=== PATIENT | female | born 1990 | race Caucasian/White ===

== ENCOUNTER 2017-12-07 12:11 | Emergency (ER) | payer OTHER ==
[~2017-12-07] VITALS: Ht 167.6 cm; Wt 81.6 kg
[2017-12-07 14:28] LABS: ABSOLUTE BASOPHIL COUNT 0.1 /CUMM (0.0-0.2); ABSOLUTE EOSINOPHIL COUNT 0 /CUMM (0.0-0.7); ABSOLUTE MONOCYTE COUNT 0.5 /CUMM (0.10-0.60); BASOPHIL % 0.7 % (0.0-2.0); EOSINOPHIL % 0.5 % (0-5); GRANULOCYTE % 65.3 % (42.2-75.2); HEMATOCRIT 42.5 % (37-47); MEAN CORPUSCULAR HGB 31.4 PG (27.0-31.0); MEAN CORPUSCULAR HGB CONC 34.6 G/DL (33.0-37.0); MEAN CORPUSCULAR VOLUME 90.8 FL (81.0-99.0); MEAN PLATELET VOLUME 7.3 FL (7.4-10.4); PLATELET COUNT 438 /CUMM (130-400); RBC DISTRIBUTION WIDTH 12.3 % (11.5-14.5); RED BLOOD CELL CT 4.68 /CUMM (4.20-5.40); WHITE BLOOD CELL COUNT 7.6 /CUMM (4.8-10.8)
--- NOTE | 2017-12-07 14:42 | ED GENERAL ADULT ---
History of Present Illness General Chief Complaint: General Adult Stated Complaint: HANDS ARE TINGLING Source: patient Exam Limitations: no limitations Vital Signs & Intake/Output Vital Signs & Intake/Output Vital Signs Date Time Temp Pulse Resp B/P B/P Pulse O2 O2 Flow FiO2 Mean Ox Delivery Rate 12/07 1447 98.3 94 18 132/88 100 Room Air 12/07 1356 Room Air 12/07 1221 97.9 116 18 164/93 99 Room Air Allergies Coded Allergies: NO KNOWN ALLERGIES (10/25/11) Reconcile Medications Etonogestrel/Ethinyl Estradiol (Nuvaring Vaginal Ring) 0.12 MG -0.015 MG/24 HR VAG.RING 1 EACH VG Q30D BC (Reported) use for 3 weeks, skip for 1 week Triage Note: 27F HX MIGRAINES WAS DRIVING AND DEVELOPED SPOTS AND HAD TO MOBILE ENGINEER. THEN DEVELOPED LEFT SIDED HAND NUMBNESS, RESOLVED AND THEN RIGHT HAND TINGLING ALSO RESOLVED. ALSO FELT TINGLING TO LIP AND TONGUE. REPORTS HEADACHE HAS NOT YET STARTED BUT SHE IS FEELING OFF. ALSO DID NOT EAT BREAKFAST TODAY. INCIDENT OCCURRED AROUND 10:30AM. FOCAL NEUROS INTACT IN TRIAGE AND PERRLA. DENIES SMOKING, +ORAL CONTRACEPTIVES, DENIES FAMILY CARDIAC HX BUT FATHER REPORTS SHE HAS RECENTLY HAD HIGH BP READINGS AT HOME Triage Nurses Notes Reviewed? yes Onset: Abrupt Duration: hour(s): (5), better, changing over time, continues in ED, intermittent Timing: remote history Injury Environment: street Severity: mild, moderate Severity Numbers: 5 No Modifying Factors: none LMP (ages 10-50): unknown : No Patient currently breastfeeds: No HPI: 27-year-old female past mental history of migraine headaches since her evaluation of headache, blurred vision/seen spots, numbness in her lips tongue and bilateral hands. Patient states around 10:30 this morning she was driving her car when she started seeing spots. She then developed numbness and tingling in her left hand and her right hand then her lips and tongue. The numbness and tingling as well as the seeing spots lasted for about a half hour before resolving completely. She then developed a right frontal headache described as pressure. Patient states she has had very similar symptoms on multiple occasions in the past associated with her migraine headaches. States that she usually will get the vision changes numbness and tingling before the headache develops which happened today. The current headache is similar to previous. Described as pressure she rates it as a 5 out of 10 this is not the worst headache of her life there is no nausea or vomiting head trauma fever or neck pain chest pain shortness of breath or any other associated symptoms. She has not had headache like this in a few years. She has had CT scans of her head in the past THAT HAVE been negative. (Dano Hollis) Past History Travel History Traveled to [place] past 21 day No Medical History Any Pertinent Medical History? see below for history Neurological: migraine EENT: NONE Cardiovascular: NONE Respiratory: NONE Gastrointestinal: NONE Hepatic: NONE Renal: NONE Musculoskeletal: NONE Psychiatric: NONE Endocrine: NONE Blood Disorders: NONE Cancer(s): NONE Surgical History Surgical History: non-contributory Psychosocial History What is your primary language Serbian Tobacco Use: Never used Family History Hx Contributory? No (Dano Hollis) Review of Systems Review of Systems Constitutional: Reports: no symptoms. EENTM: Reports: see HPI, visual changes. Respiratory: Reports: no symptoms. Cardiovascular: Reports: no symptoms. GI: Reports: no symptoms. Genitourinary: Reports: no symptoms. Musculoskeletal: Reports: no symptoms. Skin: Reports: no symptoms. Neurological/Psychological: Reports: see HPI, headache, numbness, tingling. Hematologic/Endocrine: Reports: no symptoms. Immunologic/Allergic: Reports: no symptoms. All Other Systems: Reviewed and Negative (Dano Hollis) Physical Exam Physical Exam General Appearance: well developed/nourished, no apparent distress, alert, awake Head: atraumatic, normal appearance Eyes: Bilateral: normal appearance, PERRL, EOMI. Ears, Nose, Throat: normal pharynx, normal ENT inspection, hearing grossly normal Neck: normal inspection, supple, full range of motion Respiratory: normal breath sounds, chest non-tender, no respiratory distress, lungs clear Cardiovascular: regular rate/rhythm, edema, normal peripheral pulses Peripheral Pulses: 2+ radial (R), 2+ radial (L) Gastrointestinal: normal bowel sounds, soft, non-tender, no organomegaly Back: normal inspection, normal range of motion, no vertebral tenderness Extremities: normal inspection, normal range of motion, no edema Neurologic/Psych: no motor/sensory deficits, awake, alert, oriented x 3, normal gait, normal mood/affect, windows systems administrator II-XII nml as tested, NORMAL FINGER TO NOSE, NEGATIVE ROMBERG CEREBELLAR TESTING INTACT Skin: intact, normal color, warm/dry Lymphatic: no anterior cervical tonia Core Measures ACS in differential dx? No CVA/TIA Diagnosis: No Sepsis Present: No Sepsis Focused Exam Completed? No (Ketan DENNEY,Dano) Progress Differential Diagnoses I considered the following diagnoses in my evaluation of the patient: [Migraine headache, cluster headache, tension headache, anxiety attack, acute coronary syndrome, electrolyte ABN, ] Plan of Care: Orders Procedure Date/time Status Add-on Test (ER Only) 12/07 145 Active EKG 12/07 145 Active TROPONIN LEVEL 12/07 1415 Complete URINE 12/07 133 Complete URINALYSIS 12/07 1336 Complete COMPREHENSIVE METABOLIC PANEL 12/07 1336 Complete CBC WITHOUT DIFFERENTIAL 12/07 1336 Complete Laboratory Tests 12/07/17 1439: Urinalysis LIGHT H, Urine Color STRAW, Urine Clarity HAZY H, Urine pH 6.0, Ur Specific [place] <= 1.005, Urine Protein NEG, Urine Ketones NEG, Urine Nitrite NEG, Urine Bilirubin NEG, Urine Urobilinogen 0.2, Ur Leukocyte Esterase NEG, Ur Microscopic SEDIMENT EXAMINED, Urine WBC 1-3 H, Ur Epithelial Cells MOD H, Urine Bacteria FEW H, Urine Hemoglobin NEG, Urine Glucose NEG, Urine Test NEGATIVE 12/07/17 1415: Anion Gap 14, Estimated GFR > 60, BUN/Creatinine Ratio 11.1, Glucose 85, Calcium 9.9, Total Bilirubin 0.5, AST 21, ALT 25, Alkaline Phosphatase 81, Troponin I < 0.01, Total Protein 7.5, Albumin 4.6, Globulin 2.9, Albumin/Globulin Ratio 1.6, CBC w Diff NO MAN DIFF REQ, RBC 4.68, MCV 90.8, MCH 31.4 H, MCHC 34.6, RDW 12.3 , MPV 7.3 L, Gran % 65.3, Lymphocytes % 26.6, Monocytes % 6.9, Eosinophils % 0.5, Basophils % 0.7, Absolute Granulocytes 5.0, Absolute Lymphocytes 2.0, Absolute Monocytes 0.5, Absolute Eosinophils 0, Absolute Basophils 0.1 Patient seen and evaluated. Here with headache bilateral numbness and tingling of the upper extremities and seeing spots. Patient states she has had similar symptoms in the past on multiple occasions however has not had this in a couple years. The headache is similar to previous. Patient was medicated with IV Toradol here and labs EKG ordered. Patient has had multiple normal CAT scans in the past so because of her similar symptoms today a repeat CAT scan was not ordered. She is neurologically intact this is not the worse headache of her life it is getting better on its own, no thunderclap. She reports complete resolution of her headache with Toradol. Blood work does not show any acute significant findings EKG is unchanged. Patient will be given a prescription for ibuprofen to continue as needed for pain. Follow-up with primary care doctor. Discussed return precautions patient agrees the plan Initial ED EKG: normal sinus rhythm, mild T-wave flattening in V3. T-wave inversion in lead 3 and aVF unchanged from previous (Dano Hollis) Departure Departure Disposition: HOME OR SELF CARE Condition: Stable Clinical Impression Primary Impression: Headache Qualifiers: Headache type: unspecified Headache chronicity pattern: acute headache Intractability: not intractable Qualified Code: R51 - Headache Referrals: Dorys BAILON,David Price (PCP/Family) Additional Instructions: Continue ibuprofen 800 mg every 8 hours with food as needed for pain. Make a follow-up with a primary care doctor to review all results of today's visit. Monitor symptoms closely return with any concerns. Departure Forms: Customer Survey General Discharge Information (Dano Hollis) PA/TEMPLATE STORAGE CLERK Co-Sign Statement Statement: ED Attending supervision documentation- [] I saw and evaluated the patient. I have also reviewed all the pertinent lab results and diagnostic results. I agree with the findings and the plan of care as documented in the PA's/TEMPLATE STORAGE CLERK's documentation. [x] I have reviewed the ED Record and agree with the PA's/TEMPLATE STORAGE CLERK's documentation. [] Additions or exceptions (if any) to the PAs/TEMPLATE STORAGE CLERK's note and plan are summarized below: [] (Joni Cantor DO) Critical Care Note Critical Care Note Critical Care Time: non-applicable (Dano Hollis)
[2017-12-07] MEDS ORDERED: NUVARING VAGIN1 EACH VG (14:56)
[2017-12-07 16:02] VITALS: BP 136/82
== END 2017-12-07 16:12 ==
LOC: ERH 12:11
PROVIDERS: Physician Assistant Medical
DX: R51 Headache (principal)
CPT/HCPCS: 81001; 81025; 93005; 93010; 96374; J1885

== ENCOUNTER 2018-03-03 02:20 | Emergency (ER) | payer OTHER ==
[~2018-03-03 02:20] MED LIST: NUVARING VAGIN1 EACH VG
--- NOTE | 2018-03-03 03:03 | ED PSYCHIATRIC COMPLAINT ---
History of Present Illness General Chief Complaint: Psychiatric Related Complaint Stated Complaint: SI COMMENTS? Source: patient, police Exam Limitations: no limitations Vital Signs & Intake/Output Vital Signs & Intake/Output Vital Signs Date Time Temp Pulse Resp B/P B/P Pulse O2 O2 Flow FiO2 Mean Ox Delivery Rate 03/03 1338 97.9 99 18 132/78 100 Room Air 03/03 1136 98.0 105 19 149/87 98 Room Air 03/03 0637 97.6 110 18 131/79 98 Room Air 03/03 0233 Room Air 03/03 0231 97.9 84 18 133/87 100 Room Air Allergies Coded Allergies: NO KNOWN ALLERGIES (10/25/11) Reconcile Medications Etonogestrel/Ethinyl Estradiol (Nuvaring Vaginal Ring) 0.12 MG -0.015 MG/24 HR VAG.RING 1 EACH VG Q30D BC (Reported) use for 3 weeks, skip for 1 week Triage Note: PT BIBA FROM HOME. PT REPORTS SHE GOT INTO AN ARGUMENT WITH HER BOYFRIEND AND "SAID SOME THINGS I GUESS I SHOULDN'T HAVE SAID AND I ENDED UP HERE". PER EMS PT REPORTS SI STATEMENTS TO HER BOYFRIEND WHO CALLED PD. PT IS HERE ON A PEER. DENIES SI/HI AT THIS TIME. Triage Nurses Notes Reviewed? yes Onset: Abrupt Duration: day(s): Timing: recent history : No Patient currently breastfeeds: No HPI: 03/03/18 27-year-old female brought in by police on the physician emergency evaluation request. She apparently verbalized suicidal thoughts and intent. She denies any suicidal ideation at this time. She denies any past medical history or drug use. (Joni Cantor DO) Past History Travel History Traveled to [place] past 21 day No Medical History Any Pertinent Medical History? see below for history Neurological: migraine EENT: NONE Cardiovascular: NONE Respiratory: NONE Gastrointestinal: NONE Hepatic: NONE Renal: NONE Musculoskeletal: NONE Psychiatric: NONE Endocrine: NONE Blood Disorders: NONE Cancer(s): NONE Surgical History Surgical History: non-contributory Psychosocial History What is your primary language Khmer Tobacco Use: Never used Family History Hx Contributory? No (Joni Cantor DO) Review of Systems Review of Systems Constitutional: Denies: fever. EENTM: Denies: visual changes. Respiratory: Denies: short of breath. Cardiovascular: Denies: chest pain. GI: Denies: abdominal pain. Genitourinary: Reports: no symptoms. Musculoskeletal: Reports: no symptoms. Skin: Reports: no symptoms. Neurological/Psychological: Reports: depressed. Hematologic/Endocrine: Reports: no symptoms. Immunologic/Allergic: Reports: no symptoms. (Joni Cantor DO) Physical Exam Physical Exam General Appearance: well developed/nourished, alert, awake, anxious, mild distress Head: atraumatic, normal appearance Eyes: Bilateral: normal appearance, PERRL, EOMI. Ears, Nose, Throat: normal pharynx, normal ENT inspection Neck: normal inspection, supple, full range of motion Respiratory: normal breath sounds, chest non-tender, no respiratory distress Cardiovascular: regular rate/rhythm Gastrointestinal: soft, non-tender Extremities: normal range of motion Neurological/Psychiatric: no motor/sensory deficits, awake, alert, normal mood/ affect, anxious, depressed affect Appearance/Memory/Insight: appropriate appearance Behavoir/Eye Contact/Speech: cooperative Thoughts/Hallucinations: normal thought pattern Skin: intact, normal color SAD PERSONS SAD PERSONS Response Value Depression/Hopelessness? yes 2 Single//? yes 1 Social Support? has no support 1 Total 4 SAD PERSONS Done? yes (Joni Cantor DO) Progress Differential Diagnosis: drug intoxication, drug overdose, drug withdrawal, DEPRESSION Plan of Care: Orders Procedure Date/time Status Heart Healthy Diet 03/03 B Active Continuous Observation Monitor 03/03 310 Active URINE 03/03 310 Complete ETHANOL 03/03 310 Complete COMPREHENSIVE METABOLIC PANEL 03/03 310 Complete CBC WITHOUT DIFFERENTIAL 03/03 310 Complete ED CRISIS PSYCH CONSULT 03/03 310 Active Laboratory Tests 03/03/18 0438: Anion Gap 8, Estimated GFR > 60, BUN/Creatinine Ratio 14.4, Glucose 105 H, Calcium 9.0, Total Bilirubin 0.3, AST 21, ALT 29, Alkaline Phosphatase 70, Total Protein 6.8, Albumin 4.1, Globulin 2.7, Albumin/Globulin Ratio 1.5, CBC w Diff NO MAN DIFF REQ, RBC 4.25, MCV 90.6, MCH 31.2 H, MCHC 34.4, RDW 12.6, MPV 7.0 L, Gran % 60.8, Lymphocytes % 30.7, Monocytes % 7.8, Eosinophils % 0.5, Basophils % 0.2, Absolute Granulocytes 3.6, Absolute Lymphocytes 1.8, Absolute Monocytes 0.5, Absolute Eosinophils 0, Absolute Basophils 0, Serum Alcohol 118.0 , Urine Test NEGATIVE Initial ED EKG: none (Joni Cantor DO) Comments: Patient has been seen and evaluated by hotel lobby concierge. Patient is stable for discharge at this time. Patient contracts for safety. Patient's family as well as the patient and agree with the plan. (Hanna BAILON,Clement Carlisle) Departure Departure Condition: Stable Clinical Impression Primary Impression: Depression Referrals: Dorys BAILON,David Price (PCP/Family) Departure Forms: Customer Survey General Discharge Information Comments 03/03/18 The patient is pending evaluation by crisis. She will be signed out to Dr. Ferreira at 7 AM. (Joni Cantor DO) Departure Disposition: HOME OR SELF CARE Additional Instructions: Please follow up as per recommendations of the hotel lobby concierge. Call 211 or return immediately to the emergency department for any concerns of harming yourself, anyone else or for any other concerns. (Hanna BAILON,Clement Carlisle)
[2018-03-03 04:54] LABS: ABSOLUTE BASOPHIL COUNT 0 /CUMM (0.0-0.2); ABSOLUTE EOSINOPHIL COUNT 0 /CUMM (0.0-0.7); ABSOLUTE GRANULOCYTE CT 3.6 /CUMM (1.4-6.5); ABSOLUTE LYMPH COUNT 1.8 /CUMM (1.2-3.4); ABSOLUTE MONOCYTE COUNT 0.5 /CUMM (0.10-0.60); BASOPHIL % 0.2 % (0.0-2.0); EOSINOPHIL % 0.5 % (0-5); GRANULOCYTE % 60.8 % (42.2-75.2); HEMATOCRIT 38.5 % (37-47); MEAN CORPUSCULAR HGB 31.2 PG (27.0-31.0); MEAN CORPUSCULAR HGB CONC 34.4 G/DL (33.0-37.0); MEAN CORPUSCULAR VOLUME 90.6 FL (81.0-99.0); PLATELET COUNT 405 /CUMM (130-400); RBC DISTRIBUTION WIDTH 12.6 % (11.5-14.5); RED BLOOD CELL CT 4.25 /CUMM (4.20-5.40); WHITE BLOOD CELL COUNT 5.9 /CUMM (4.8-10.8)
[2018-03-03 16:27] VITALS: BP 148/92
--- NOTE | 2018-03-03 17:10 | ED PSYCH CRISIS CONSULTATION ---
Crisis Consult Basic Assessment Date of Consult: 03/03/18 Responsible Person/Accompanied By: Mother, friend Insurance Authorization: Insurance #1: Insurance name: SANDHYA OWENS Phone number: Policy number: [id number] Group number: Authorization number: ED Provider: Patient's ED Provider: Joni Cantor DO Primary Care Physician: Patient's PCP: David Saul MD PCP's Current Psychiatrist: none Chief Complaint: Psychiatric Related Complaint Patient's Quote: "It was a bad day" Present Illness: Pt. is a 27 year old female BIBA on a PEER which states that, "Pt. made suicidal comments to a friend'I should put a bullet in my head'". Pt. reports to this clinician that she had been over a friend's house drinking last night and got picked up by another friend. Pt. reports that on her way home she got into a texting argument with her boyfriend - whom patient's mother told this clinician is away at a wedding that patient was not invited to. Pt. reports that when she got home she sent another text to her boyfriends father - thinking that it was her boyfriend. The text said, "I should just put a bullet in my head". Pt.'s boyfriend's father called 911. Pt. reports that yesterday was a bad day" and said that she wrote the text impulsively and was not having any thoughts of killing herself. Pt. also denies that she is depressed. Pt. denies any problems with sleep, appetite, energy level or interest. She denies any current suicidal thoughts. Pt. denies any past or current psychiatric treatment. Pt. reports that although she did drink "a lot" last night, she usually only uses alcohol on the weekends and only usually has "a couple" of drinks. This clinician later spoke to pt's mother alone. Pt.' s mother says that although she does not think pt. is "suicidal", she does think that pt. is depressed about the situation with her boyfriend and regarding a situation with another friend. Pt.s mother says that she does think pt. could benefit from outpatient therapy and maybe medication. This clinician consulted with Dr. Hunter who recommends that pt. be offered an outpatient intake appointment. Pt. was unable to take the intake appointment due to her work schedule but took the number for [facility] along with a list of other outpatient providers. Patient's Address: [address] [place] [address] Other Phone Number: Who Do You Live With? Patient and family Family/Informants Interviewed: Mother Allergies - Coded Allergies: NO KNOWN ALLERGIES (10/25/11) Current Medications - Scheduled Medications Etonogestrel/Ethinyl Estradiol (Nuvaring Vaginal Ring) 0.12 MG -0.015 MG/24 HR VAG.RING 1 EACH VG Q30D BC (Reported) Entered as Reported by Santos Green on 12/07/17 8436 Laboratory Results: Laboratory Tests 03/03/18 0438: Anion Gap 8, Estimated GFR > 60, BUN/Creatinine Ratio 14.4, Glucose 105 H, Calcium 9.0, Total Bilirubin 0.3, AST 21, ALT 29, Alkaline Phosphatase 70, Total Protein 6.8, Albumin 4.1, Globulin 2.7, Albumin/Globulin Ratio 1.5, CBC w Diff NO MAN DIFF REQ, RBC 4.25, MCV 90.6, MCH 31.2 H, MCHC 34.4, RDW 12.6, MPV 7.0 L, Gran % 60.8, Lymphocytes % 30.7, Monocytes % 7.8, Eosinophils % 0.5, Basophils % 0.2, Absolute Granulocytes 3.6, Absolute Lymphocytes 1.8, Absolute Monocytes 0.5, Absolute Eosinophils 0, Absolute Basophils 0, Serum Alcohol 118.0 , Urine Test NEGATIVE Past History Past Medical History Neurological: migraine EENT: NONE Cardiovascular: NONE Respiratory: NONE Gastrointestinal: NONE Hepatic: NONE Renal: NONE Musculoskeletal: NONE Psychiatric: NONE Endocrine: NONE Blood Disorders: NONE Cancer(s): NONE Past Surgical History Surgical History: non-contributory Psychosocial History Strengths/Capabilities: intelligent, employed, parents are supportive Physical Limitations (Interventions): none Psychiatric Treatment History Psych Treatment Psychiatric Treatment No Diagnosis by History: none Substance Use/Abuse History Drug Use/Abuse Substances Used/Abused Yes Substance Used/Abused Alcohol First Use unk Last Used last night How much used/taken "a lot" How often weekly For how long unk Route of use oral Substance Abuse Treatment Substance Abuse Treatment Past Substance Abuse [place] No Comments: n/a Current Mental Status Mental Status Orientation: Person, Place, Situation Affect: WNL Speech: WNL Appearance Appearance- Dress/Hygiene: WNL Behaviors Thought Process: WNL Thought Content: WNL Memory: WNL Insight: Fair SI/HI Risk Assessment Past Suicidal Ideation/Attempts No Current Suicidal Ideation/Att No Past Homicidal Ideation/Att: No Current Homicidal Ideation/Attempts No Degree of Intent: None Danger To: none Gravely Disabled: none Risk Factors: substance abuse Lethality Ratin (mild) PTSD Checklist PTSD Done? patient declined ED Management Sitter: Yes Restraints: No DSM5/PS Stressors/Medical Prob Diagnosis' (DSM 5, Stressors, Medical): F32.9 - Unspecified Depressive D/O F10.20 - Alcohol Use D/O, moderate Stressors - relationship Medical - none Current GAF: 55 Comments: Pt. appears to be drinking and having conflicts with friends and her boyfriend, but is working and denying any suicidal thoughts. Departure Disposition Psych Medical Clearance Date: 03/03/18 Medically Cleared at: 1530 Time Started: 1530 Time Ended: 1600 Psychiatrist Consulted: Ameena Hunter MD Date Disposition Established: 03/03/18 Time Disposition Established: 1600 Plan for Disposition - Modality: Outpatient Facility: Patient to Arrange Contact: n/a Telephone: n/a Rationale for Disposition: Pt. denies any current suicidal thoughts or any sx's of depression. Pt's mother agrees that pt. is not "suicidal". Pt. agrees to take a list of outpatient providers to call to start treament. Additional Instructions: n/a Referrals Dorys BAILON,David Price (PCP/Family)
== END 2018-03-03 16:32 ==
LOC: ERH 02:20
PROVIDERS: Internal Medicine Interventional Cardiology
DX: F32.9 Major depressive disorder, single episode, unspecified (principal)
CPT/HCPCS: 81025; G0463; G0480